=== PATIENT | female | born 1950 | race Caucasian/White ===

== ENCOUNTER → 2023-08-31 | Emergency (ER) | payer OTHER ==
[~2023-08-31] VITALS: Ht 152.4 cm; Wt 44.9 kg
[2023-08-31 13:39] VITALS: BP 139/81; TEMP 98.8
[2023-08-31 14:47] VITALS: O2SAT 99
== END | disposition home or self-care (01) ==
LOC: ER 13:35
DX: Z04.1 Encounter for examination and observation following transport accident (principal); V89.0XXA Person injured in unspecified motor-vehicle accident, nontraffic, initial encounter; Y93.89 Activity, other specified; Y92.89 Other specified places as the place of occurrence of the external cause; Y99.8 Other external cause status